=== PATIENT | male | born 1965 | race Caucasian/White ===

== ENCOUNTER 2019-04-13 09:24 | Emergency (ER) | payer OTHER ==
[~2019-04-13] VITALS: Ht 177.8 cm; Wt 109.5 kg
--- NOTE | 2019-04-13 09:50 | NUR ---
REPORT FROM ANIT[facility]IGGS WITH REASSESMENT PATIENT REPORTS NAUSEA.SORE THORAT.FEVER. rEPORTS LIMITED COUGH UPON WAKING IN AM DROPLET PRECAUTIONS IN PLACE
[2019-04-13] MEDS ORDERED: IBUPROFEN 800 MG TABLET ONE (10:06)
[2019-04-13] MEDS ORDERED: DEXAMETHASONE 4 MG TABLET ONE (10:06)
--- NOTE | 2019-04-13 10:15 | NUR ---
MEDICATED PER EMAR FOR FEVER/PAIN
--- NOTE | 2019-04-13 10:25 | NUR ---
CXR AT BEDSIDE
[2019-04-13] MEDS ORDERED: IBUPROFEN 800 MG TABLET PO ONE (10:30)
[2019-04-13] MEDS ORDERED: DEXAMETHASONE 4 MG TABLET PO ONE (10:30)
[2019-04-13] MEDS ORDERED: ACETAMINOPHEN 500 MG TABLET PO ONE (10:30)
[2019-04-13 11:18] VITALS: BP 154/74
--- NOTE | 2019-04-13 11:19 | NUR ---
WITH REASSESSMENT TEMP/HR IMPROVED AND THROAT PAIN MUCH IMPROVED (02/19) POC REVIEWED AND WHAT [facility] NECCESITATING RETURN TO CARE
== END 2019-04-13 11:21 | disposition home or self-care (01) ==
LOC: ED 11:15
DX: J02.0 Streptococcal pharyngitis (principal)
CPT/HCPCS: 71045; 87081; 87147; 87880; 93005; 99285